=== PATIENT | male | born 1965 | race Caucasian/White ===

== ENCOUNTER 2022-08-29 14:02 | Outpatient (CLI) | payer BC, SELFPAY ==
[2022-08-29 16:24] LABS: Influenza A QL RT-PCR Negative (Negative); Influenza B QL RT-PCR Negative (Negative); RSV RNA, RT-PCR Negative (Negative); SARS-CoV-2 RNA PCR Negative (Negative)
== END 2022-08-29 14:03 | disposition home or self-care (01) ==
LOC: ANHLAB 14:04
PROVIDERS: PCP Family Medicine; Visit Provider Nurse Practitioner Family
DX: R68.89 Other general symptoms and signs (principal); Z20.822 Contact with and (suspected) exposure to COVID-19
CPT/HCPCS: 87637

== ENCOUNTER 2023-01-05 12:47 | Emergency (ER) | payer BC, SELFPAY ==
--- NOTE | ~2023-01-05 | XR_ITS ---
EXAMINATION: XR chest 2V DATE: 01/05/2023 13:12 INDICATION: Dizziness and shortness of breath TECHNIQUE: PA and lateral views of the chest are obtained. COMPARISON: 08/18/2013 FINDINGS: The lungs are free of acute opacities. No pleural effusion or pneumothorax. The cardiomedia stinal silhouette is normal. The visualized bones and soft tissues are unremarkable. IMPRESSION: 1. No acute cardiopulmonary abnormality. Reviewed, dictated and finalized at location B.
[2023-01-05 12:51] VITALS: BP 153/97; PULSE 68; RESP 14; TEMP 36.2; O2SAT 100
--- NOTE | 2023-01-05 12:57 | ECG_ITS ---
Measurements Intervals [place] Rate: 68 P: 49 [place]: 151 QRS: -1 QRSD: 92 T: 26 QT: 376 QTc: 402 Interpretive Statements SINUS RHYTHM INCOMPLETE RIGHT BUNDLE BRANCH BLOCK BORDERLINE ECG NO PREVIOUS ECG AVAILABLE FOR COMPARISON Electronically Signed On 01-05-2023 13:05:31 CDT by Mac Barbosa D.O.
[2023-01-05 13:15] LABS: Basophils Absolute Auto 0.1 K/mm3 (0.0-0.1); Basophils Percent Auto 0.7 % (0.2-1.2); Eosinophils Absolute Auto 0.3 K/mm3 (0-0.3); Eosinophils Percent Auto 4.3 % (0-4.4); Hematocrit 48.8 % (42.0-52.0); Hemoglobin 16.1 g/dL (14.0-18.0); Immature Granulocyte Absolute 0.01 K/mm3 (0.00-0.031); Immature Granulocyte Percent A 0.1 % (0-0.5); Lymphocytes Absolute Auto 2.04 K/mm3 (0.9-3.2); Lymphocytes Percent Auto 27.2 % (18.3-44.2); Mean Corpuscular Hemoglobin 29.6 pg (26-34); Mean Corpuscular Volume 89.7 fl (80-100); Mean Platelet Volume 12.1 fl (7.4-10.4); Monocytes Absolute Auto 0.6 K/mm3 (0.1-0.6); Monocytes Percent Auto 8.3 % (2.6-8.5); Neutrophils Absolute Auto 4.5 K/mm3 (1.3-6.7); Neutrophils Percent Auto 59.4 % (45.5-73.1); Platelet Count Result 211 k/mm3 (150-375); Red Blood Count 5.44 M/mm3 (4.6-6.20); Red Cell Distribution Width 12.9 % (11.5-14.5); White Blood Count 7.5 K/mm3 (4.5-10.0)
[2023-01-05 13:27] LABS: INR 0.9; Prothrombin Time 12.7 Seconds (11.1-14.7)
[2023-01-05 13:28] LABS: Alanine Aminotransferase 30 U/L (6-50); Albumin Level 4.4 g/dL (3.5-5.1); Alkaline Phosphatase 58 U/L (38-126); Anion Gap 9 mmol/L (8-16); Aspartate Amino Transferase 31 U/L (17-59); Bilirubin,Total 0.4 mg/dL (0.2-1.3); Blood Urea Nitrogen 29 mg/dL (9-20); Calcium 9.3 mg/dL (8.4-10.2); Carbon Dioxide 28 mmol/L (22-30); Chloride 104 mmol/L (98-107); Estimated CRCL calculation 81 ml/min; Estimated Glomerular Filt Rate > 60; Glucose 88 mg/dL (65-110); Partial Thromboplastin Time 30.2 SECONDS (22.3-36.8); Potassium 4.2 mmol/L (3.4-5.0); Sodium 141 mmol/L (137-145)
[2023-01-05 13:37] LABS: Troponin I < 0.012 ng/mL (0.000-0.034)
[2023-01-05 15:41] VITALS: BP 151/101; PULSE 61; PULSE 68; RESP 16; O2SAT 99
[2023-01-05] MEDS: SODIUM CHLORIDE 0.9% IV 1,000 ML 999 ML IV CONT (15:48)
[2023-01-05 16:18] LABS: Magnesium 2.5 mg/dL (1.6-2.3)
[2023-01-05 16:29] LABS: Troponin I < 0.012 ng/mL (0.000-0.034)
[2023-01-05 16:52] LABS: D Dimer < 0.27 ug/mL (<0.48)
--- NOTE | 2023-01-05 17:17 | ED.DIZZY ---
HPI - Dizziness General Chief Complaint: Dizziness Stated Complaint: lightheaded, heart racing Time Seen by Provider: 01/05/23 15:30 Source: patient, RN notes reviewed and old records reviewed Mode of arrival: ambulatory Limitations: no limitations History of Present Illness HPI Narrative: This is a 57 year old male who presents for evaluation of palpitations. PAtient reports that for the past couple weeks he has been having episodes in which he feels like his heart is racing . He states he gets dizzy and lightheaded and he also reports shortness of breath with these episodes. He denies chest pain, fever, chills vomiting or diarrhea. He was evaluated by his PCP who has ordered labs, ECHO and holter monitor. He reports he is having frequent episodes so he came to ER for evaluation. He is scheduled to get ECHO in a couple weeks with the holter monitor. He denies episode currently . Related Data Allergies Allergy/AdvReac Type Severity Reaction Status Date / Time No Known Drug Allergies Allergy Unknown Unknown Verified 01/05/23 12:55 Review of Systems Constitutional: Constitutional: Reports fatigue and Denies weakness Cardiovascular: Cardiovascular: Denies syncope, Reports rapid heart rate, Denies irregular heart rhythm, Denies leg edema and Reports dyspnea Respiratory: Respiratory: Denies chest congestion, Denies hemoptysis, Denies excessive phlegm production and Denies dyspnea Gastrointestinal: Gastrointestinal: Denies abdominal pain, Denies hematochezia, Denies diarrhea and Denies vomiting Genitourinary: Genitourinary: Denies hematuria, Denies dysuria, Denies penile discharge and Denies testicular pain Musculoskeletal: Musculoskeletal: Denies joint swelling, Denies loss of height and Denies muscle weakness Neurologic: Denies syncope, Denies focal weakness and Denies weakness PMFSH Past Medical History Medical History Metabolic syndrome Mixed hyperlipidemia Overweight Surgical History Surgical History History of rotator cuff surgery Family History Family History Father Acute myocardial infarction Heart disease Hyperlipidemia Hypertension Grandparent Diabetes mellitus Grandparent Diabetes mellitus Father Hypertension Family history of elevated blood lipids Family history of cardiovascular disease Other No family history of hypertension Social History Social History Smoking status: Never smoker Second hand tobacco smoke exposure: No Alcohol intake: current Drinks per week: 1 Substance use: never Substance use type: does not use Lack of Transportation: No Lack of Food: Never True Current Housing: I Have Housing Concerned About Future Housing: No Difficulty Paying Gas/Electric Bills: No Difficulty Paying for Meds: No Currently Unemployed: No Education: High School Diploma/GED Difficulty w/ Childcare or Family Care: No Living arrangements: with family Occupation/Education: occupation Gender identity (if verbalized by the patient): Male Exam Const: General: no acute distress and alert Nutritional Appearance: well nourished Orientation/consciousness: patient oriented x3 Limitations: no limitations HENMT: Head: normal to inspection Eyes: Pupils: Equal, round and reactive pupils present EOM: EOMs intact bilaterally Chest: Chest palpation & inspection: normal inspection of the chest Resp: Effort & Inspection: normal respiratory effort Auscultation: clear to auscultation bilaterally Cardio: Rate: regular rate Rhythm: regular rhythm Heart sounds: no murmurs GI: GI Palp: Yes Soft to palpation, No Tenderness to palpation present (GI), No Guarding due to palpation present (GI) and No Rigid due to palpation Auscultation: normal bowel soun
[2023-01-05 17:38] VITALS: BP 146/98; PULSE 62; RESP 18; O2SAT 100
== END 2023-01-05 17:41 | disposition home or self-care (01) ==
PROVIDERS: Emergency Medicine; Emergency Provider General Practice; PCP Family Medicine
DX: R00.2 Palpitations (principal); E86.0 Dehydration; E78.2 Mixed hyperlipidemia
CPT/HCPCS: 36415; 71046; 80053; 83735; 84443; 84484; 85025; 85380; 85610; 85730; 93005; 96360; 99284; J7030

== ENCOUNTER 2023-01-18 10:05 | Outpatient (CLI) | payer BC, SELFPAY ==
--- NOTE | 2023-01-18 10:15 | EST_ITS ---
Patient Info Name: Montrell Rene Age: 57 years : 1965 Gender: Male Ht: 72 in Wt: 195 lbs BSA: 2.13 m2 HR: 60 bpm BP: 121 / 78 mmHg Heart Rhythm: Tachycardia Technical Quality: Fair Exam Date: 01/18/2023 11:15 AM Exam Location: [facility] Pulmonary Patient Status: Outpatient Admit Date: 01/18/2023 Staff Ordering Physician: Noreen Morton DO Steam [employer] Control Room Operator: Azra Saleem RDCS Attending Provider: Referring Physician: Selene NAVARRETE; Exercise Technologist: Diana Thao CT Exercise Physician: Mac Barbosa DO Exam Type: CA stress echo Study Info Indications - PALPITATIONS DIZZINESS Treadmill exercise stress echocardiogram is performed. Summary 1. 1. Negative Subhash exercise stress test for ischemic ST changes by ECG criteria. 2. 2. Good functional capacity, achieving 10 METs of workload. 3. 3. Appropriate HR response to exercise. 4. 4. Appropriate HR recovery at 1 minute post exercise. 5. 5. Negative stress echocardiogram for ischemia by wall motion analysis. 6. 6. Patient informed of the above results. Stress Echo Findings Left Ventricle Appropriate increase in LV endocardial thickening with systole. Appropriate augmentation of contractility with systole. No wall motion abnormality. Left Ventricle Normal LV systolic function, no wall motion abnormality. Protocol: Subhash Stress ECG Details Stage: REST Duration (min): 1 min : 2 sec Speed (mph): 0.0 Grade (%): 0 HR (bpm): 59 SBP (mmHg): 121 DBP (mmHg): 78 METS: --- Stage: REST Duration (min): 24 min : 13 sec Speed (mph): 0.0 Grade (%): 0 HR (bpm): 61 SBP (mmHg): 121 DBP (mmHg): 78 METS: --- Stage: STAGE 1 Duration (min): 1 min : 0 sec Speed (mph): 1.7 Grade (%): 10 HR (bpm): 83 SBP (mmHg): 121 DBP (mmHg): 78 METS: --- Stage: STAGE 1 Duration (min): 2 min : 0 sec Speed (mph): 1.7 Grade (%): 10 HR (bpm): 92 SBP (mmHg): 121 DBP (mmHg): 78 METS: --- Stage: STAGE 1 Duration (min): 3 min : 0 sec Speed (mph): 1.7 Grade (%): 10 HR (bpm): 95 SBP (mmHg): 167 DBP (mmHg): 69 METS: --- Stage: STAGE 2 Duration (min): 1 min : 0 sec Speed (mph): 2.5 Grade (%): 12 HR (bpm): 106 SBP (mmHg): 167 DBP (mmHg): 69 METS: --- Stage: STAGE 2 Duration (min): 2 min : 0 sec Speed (mph): 2.5 Grade (%): 12 HR (bpm): 118 SBP (mmHg): 150 DBP (mmHg): 77 METS: --- Stage: STAGE 2 Duration (min): 3 min : 0 sec Speed (mph): 2.5 Grade (%): 12 HR (bpm): 128 SBP (mmHg): 150 DBP (mmHg): 77 METS: --- Stage: STAGE 3 Duration (min): 1 min : 0 sec Speed (mph): 3.4 Grade (%): 14 HR (bpm): 143 SBP (mmHg): 167 DBP (mmHg): 83 METS: --- Stage: STAGE 3 Duration (min): 2 min : 0 sec Speed (mph): 3.4 Grade (%): 14 HR (bpm): 158 SBP (mmHg): 167 DBP (mmHg): 83 METS: --- Stage: STAGE 3 Duration (min): 2 min : 2 sec Speed (mph): 0.0 Grade (%): 0 HR (bpm): 158 SBP (mmHg): 167 DBP (mmHg): 83 METS: -
--- NOTE | 2023-01-24 12:29 | WPDHOLTEREM ---
Holter/Event Monitor Holter/Event Monitor Date of procedure: 01/18/23 Holter/Event Procedure: 48 Hr Holter Monitor Indications: Dizziness Conclusion: 1. 48 hour holter monitor on 01/18/23. 2. Underlying rhythm is sinus rhythm. HR range 44-130 bpm; average HR 69 bpm. HR at 44 bpm was at 00:28. 3. There are 36 premature supraventricular complexes and 8 supraventricular couplets. No supraventricular tachycardia. 4. There are 118 premature ventricular complexes. No ventricular tachycardia. 5. No sinoatrial or atrioventricular blocks. No significant pauses greater than 2 seconds. 6. No symptoms available for correlation.
== END 2023-01-18 10:06 | disposition home or self-care (01) ==
LOC: ANHCARD 10:05
PROVIDERS: PCP Family Medicine; Visit Provider Family Medicine
DX: R42 Dizziness and giddiness (principal); F41.9 Anxiety disorder, unspecified; R00.2 Palpitations
CPT/HCPCS: 93225; 93226; 93351

== ENCOUNTER 2023-07-31 18:05 | Emergency (ER) | payer OTHER, SELFPAY ==
[2023-07-31 18:25] VITALS: BP 148/97; PULSE 98; RESP 20; TEMP 36.6; O2SAT 100
--- NOTE | 2023-07-31 21:06 | ED.EPISTAXIS ---
HPI - Epistaxis General Chief complaint: Epistaxis Stated complaint: nose bleed Time Seen by Provider: 07/31/23 20:42 Source: patient Mode of arrival: ambulatory Limitations: no limitations History of Present Illness HPI Narrative: This is a 58-year-old male presents the emergency department for a nosebleed. Reports it started a couple hours prior to arrival. He was able to control to control it with a nasal clamp. Reports history of problems with in the past for which she saw ENT. He is not taking anticoagulation. Related Data Allergies Allergy/AdvReac Type Severity Reaction Status Date / Time No Known Drug Allergies Allergy Unknown Unknown Verified 07/31/23 19:46 Review of Systems Review of Systems: CONSTITUTIONAL: Denies fever ENT: Reports epistaxis All systems reviewed & are unremarkable except as noted in HPI and below PMFSH Past Medical History Medical History Metabolic syndrome Mixed hyperlipidemia Overweight Surgical History Surgical History History of rotator cuff surgery Family History Family History Father Acute myocardial infarction Heart disease Hyperlipidemia Hypertension Grandparent Diabetes mellitus Grandparent Diabetes mellitus Father Hypertension Family history of elevated blood lipids Family history of cardiovascular disease Other No family history of hypertension Social History Social History Smoking status: Never smoker Second hand tobacco smoke exposure: No Alcohol intake: current Drinks per week: 1 Substance use: never Substance use type: does not use Lack of Transportation: No Lack of Food: Never True Current Housing: I Have Housing Concerned About Future Housing: No Difficulty Paying Gas/Electric Bills: No Difficulty Paying for Meds: No Currently Unemployed: No Education: High School Diploma/GED Difficulty w/ Childcare or Family Care: No Living arrangements: with family Occupation/Education: occupation Gender identity (if verbalized by the patient): Male Exam Narrative: GENERAL: Well-appearing, well-nourished, and in no acute distress. HEAD: Normocephalic, atraumatic. EYES: EOMI. ENT: Dried blood in the right nare, no active bleeding. Mucous membranes moist. No blood noted in the oropharynx CHEST: No respiratory distress HEART: Regular rate EXTREMITIES: Normal range of motion. No edema. SKIN: Warm, dry, no rash. NEURO: No focal deficits. Alert and oriented x3. PSYCH: Normal mood and affect Course Course Emergency Course: Patient and family in agreement with plan of care Vital Signs Vital signs: Vital Signs Temperature 97.8 F 07/31/23 18:25 Pulse Rate 98 07/31/23 18:25 Respiratory Rate 20 07/31/23 18:25 Blood Pressure 148/97 H 07/31/23 18:25 Pulse Oximetry 100 07/31/23 18:25 Oxygen Delivery Room Air 07/31/23 18:25 Temperature 97.8 F 07/31/23 18:25 Pulse Rate 98 07/31/23 18:25 Respiratory Rate 20 07/31/23 18:25 Blood Pressure 148/97 H 07/31/23 18:25 Pulse Oximetry 100 07/31/23 18:25 Oxygen Delivery Room Air 07/31/23 18:25 MDM - Epistaxis MDM Narrative Medical decision making narrative: Patient presents to the emergency department for right-sided epistaxis. Bleeding had stopped upon my evaluation. I did offer a rhino rocket, which he declines at this time. Will be given follow-up with ENT. He was given warnings to return to the ER Differential Diagnosis Differential diagnosis: Likely anterior epistaxis and posterior epistaxis Critical Care Time Critical Care Time Critical Care Time: No Discharge Plan Discharge Clinical Impression: Epistaxis Patient Disposition: Home, Self-Care Condition: Improved Instructions: Noseblee
[2023-07-31 21:24] VITALS: BP 139/87; PULSE 89; RESP 19; O2SAT 99
== END 2023-07-31 21:26 | disposition home or self-care (01) ==
PROVIDERS: Emergency Provider Physician Assistant; PCP Family Medicine
DX: R04.0 Epistaxis (principal); E88.810 Metabolic syndrome; E78.2 Mixed hyperlipidemia; E66.3 Overweight; Z68.28 Body mass index [BMI] 28.0-28.9, adult
CPT/HCPCS: 99282